=== PATIENT | male | born 1990 | race Caucasian/White ===

== ENCOUNTER 2017-09-29 09:30 | Inpatient (IN) | payer SELFPAY ==
[~2017-09-29] VITALS: Ht 182.9 cm; Wt 92.5 kg
[2017-09-29] MEDS ORDERED: NALOXONE HCL 0.4 MG/ML AMP IV PUSH PRN (11:00)
[2017-09-29] MEDS ORDERED: SODIUM CHLORIDE 0.9% FLUSH 10 ML FLUSH IV FLUSH PRN (11:00)
[2017-09-29 12:55] VITALS: BP 121/77; PULSE 88; RESP 17; TEMP 98.5; O2SAT 99
[2017-09-29] MEDS ORDERED: DILTIAZEM INJ 125 MG in SODIUM CHLORIDE 0.9% INJ 100 ML IV PRN (13:45)
--- NOTE | 2017-09-29 14:59 | HHI.HP ---
[facility] No Primary Care Physician Admission Diagnosis Diagnoses: Travel History International Travel<30 Days: No Contact w/Intl Traveler <30 Da: No Traveled to Known Affected Are: No History of Present Illness woke up today short of breath palpitaitons woke up from it even went to gym to check his hr heart rate was not able to be registered on exercise machine then waited on /gf and came to er no similar symptoms family drove him did have diarrhea on wednesday- but now resolved - no black no red have been urinating quite a bit only in ER now, not at home usually go out in [place], go out to [place], had deer hunting and ate deer meat about 2 weeks ago, family thinks he looks pale too family at bedside had hx of stroglioids did have a tick bite the other day in the [place] and he flicked it off can run 10miles without any trouble no thyroid issues no recent prolonged travels denies iv drug abuse, scared of needles, denies cocaine tox screen though is positive for marijuana beyond raw preworkout : jym protein hydrowhey protein glutamin chewable mvi - occasionally - biweeky those workout pills taking it for over a month takes one redbull occasionally, not every day Review of Systems Except as stated in HPI: all other systems reviewed are Neg Past Family Social History Past Medical History none Past Surgical History bilateral inguinal hernia sx bilateral menisucs sx Allergies: Coded Allergies: No Known Allergies (Unverified , 09/29/17) Family History grandmother had aortic aneurysm after MVA at age 82 Social History never smoked drinks etoh only once in a while no drugs Physical Exam Vital Signs Vital Signs Date Time Temp Pulse Resp B/P (MAP) Pulse Ox O2 Delivery O2 Flow Rate FiO2 09/29/17 12:55 98.5 88 17 121/77 (92) 99 09/29/17 12:55 88 09/29/17 12:55 98.5 88 17 121/77 (92) 99 Physical Exam GENERAL: This is a well-nourished, well-developed patient, in no apparent distress. SKIN: No rashes, ecchymoses or lesions. Cool and dry. HEAD: Atraumatic. Normocephalic. No temporal or scalp tenderness. EYES: Pupils equal round and reactive. Extraocular motions intact. No scleral icterus. No injection or drainage. ENT: Nose without bleeding, purulent drainage or septal hematoma. Throat without erythema, tonsillar hypertrophy or exudate. Uvula midline. Airway patent. NECK: Trachea midline. No JVD or lymphadenopathy. Supple, nontender, no meningeal signs. CARDIOVASCULAR: Regular rate and rhythm without murmurs, gallops, or rubs. RESPIRATORY: Clear to auscultation. Breath sounds equal bilaterally. No wheezes , rales, or rhonchi. GASTROINTESTINAL: Abdomen soft, non-tender, nondistended. No hepato-splenomegaly , or palpable masses. No guarding. MUSCULOSKELETAL: Extremities without clubbing, cyanosis, or edema. No joint tenderness, effusion, or edema noted. No calf tenderness. Negative Homans sign bilaterally. NEUROLOGICAL: Awake and alert. Cranial nerves II through XII intact. Motor and sensory grossly within normal limits. Five out of 5 muscle strength in all muscle groups. Normal speech. Laboratory labs from [facility] today reviewed Caprini VTE Risk Assessment Caprini VTE Risk Assessment: Mod/High Risk (score >= 2) Caprini Risk Assessment Model Point Value = 1 Point Value = 2 Point Value = 3 Point Value = 5 Age 41-60 Minor surgery BMI > 25 kg/m2 Swollen legs Varicose veins or History of unexplained or recurrent spontaneous Oral contraceptives or hormone replacement Sepsis (< 1 month) Serious lung disease, including pneumonia (< 1 month) Abnormal pulmonary function Acute myocardial infarction Congestive heart failure (< 1 month) History of inflammatory bowel disease Medical patient at bed rest Age 61-74 Arthroscopic surgery Major open surgery (> 45 min) Laparoscopic surgery (> 45 min) Malignancy Confined to bed (> 72 hours) Immobilizing plaster cast Central venous access Age >= 75 History of VTE Family history of VTE Factor V Leiden Prothrombin [id number] Lupus anticoagulant Anticardiolipin antibodies Elevated serum homocysteine Heparin-induced thrombocytopenia Other congenital or acquired thrombophilia Stroke (< 1 month) Elective arthroplasty Hip, pelvis, or leg fracture Acute spinal cord injury (< 1 month) Prophylaxis Regimen Total Risk Factor Score Risk Level Prophylaxis Regimen 0-1 Low Early ambulation 2 Moderate Order ONE of the following: *Sequential Compression Device (SCD) *Heparin 5000 units SQ BID 3-4 Higher Order ONE of the following medications: *Heparin 5000 units SQ TID *Enoxaparin/Lovenox 40 mg SQ daily (WT < 150 kg, CrCl > 30 mL/min) *Enoxaparin/Lovenox 30 mg SQ daily (WT < 150 kg, CrCl > 10-29 mL/min) *Enoxaparin/Lovenox 30 mg SQ BID (WT < 150 kg, CrCl > 30 mL/min) AND/OR *Sequential Compression Device (SCD) 5 or more Highest Order ONE of the following medications: *Heparin 5000 units SQ TID (Preferred with Epidurals) *Enoxaparin/Lovenox 40 mg SQ daily (WT < 150 kg, CrCl > 30 mL/min) *Enoxaparin/Lovenox 30 mg SQ daily (WT < 150 kg, CrCl > 10-29 mL/min) *Enoxaparin/Lovenox 30 mg SQ BID (WT < 150 kg, CrCl > 30 mL/min) AND *Sequential Compression Device (SCD) Assessment and Plan Assessment and Plan Impression: new onset afib possibly secondary to exercise supplements induced possible underlying structural heart disease from exotic diseases- [place] a lot, hx of tick bite Plan: continue cardizem drip serial enzymes and ekgs cardiology consulted echo will follow- likely cardioversion this pm anticoagulation with aspirin ID consult for possible other exotic etiologies? dvt prophylaxis with lovenox Discussed Condition With patient, father, girlfriend, ER physician at [facility] Physician Certification 2 Midnight Certification Type: Admission for Inpatient Services Order for Inpatient Services The services are ordered in accordance with Medicare regulations or non- Medicare payer requirements, as applicable. In the case of services not specified as inpatient-only, they are appropriately provided as inpatient services in accordance with the 2-midnight benchmark. Estimated LOS (days): 2 days is the estimated time the patient will need to remain in the hospital, assuming treatment plan goals are met and no additional complications. Post-Hospital Plan: Home Pillo Riley MD Sep 29, 2017 14:59
[2017-09-29 15:00] VITALS: BP_SYST 118; BP_DIAS 64; BP_DIAS 70; PULSE 98; RESP 16; RESP 17; TEMP 98; O2SAT 96; O2SAT 99
[2017-09-29] MEDS ORDERED: DILTIAZEM 125 MG/NS 100 ML IV PRN ×2 (15:00)
--- NOTE | 2017-09-29 15:48 | ECHRPT ---
Indication: ATRIAL FIBRILLATION, PRE CARDIOVERTION CONCLUSIONS Normal left ventricular size. The left ventricular systolic function is low normal with an estimated ejection fraction in the rang e of 50- 55%. Mild mitral valve regurgitation. Trace aortic valve regurgitation. There is trace tricuspid valve regurgitation. . BP: 121 / 77 HR: Rhythm: Atrial fibrillation MEASUREMENTS (Male / Female) Normal Values Technical Quality:Fair 2D ECHO LV Diastolic Diameter PLAX 4.8 cm 4.2 - 5.9 / 3.9 - 5.3 cm LV Systolic Diameter PLAX 3.6 cm IVS Diastolic Thickness 1.1 cm 0.6 - 1.0 / 0.6 - 0.9 cm LVPW Diastolic Thickness 1.1 cm 0.6 - 1.0 / 0.6 - 0.9 cm LV Relative Wall Thickness 0.5 RV Internal Dim ED PLAX 3.3 cm LVOT Diameter 2.3 cm Aortic Root Diameter 3.3 cm LA Systolic Diameter LX 3.4 cm 3.0 - 4.0 / 2.7 - 3.8 cm M-MODE AV Cusp Separation MM 2.3 cm DOPPLER AV Peak Velocity 99.9 cm/s AV Peak Gradient 4.0 mmHg AV Mean Gradient 2.0 mmHg AV Velocity Time Integral 13.0 cm LVOT Peak Velocity 106.7 cm/s LVOT Peak Gradient 4.6 mmHg LVOT Velocity Time Integral 15.5 cm AV Area Cont Eq vti 5.0 cm AV Area Cont Eq pk 4.4 cm Mitral E Point Velocity 77.0 cm/s Mitral A Point Velocity 76.0 cm/s Mitral E to A Ratio 1.0 LV E' Lateral Velocity 19.2 cm/s Mitral E to LV E' Lateral Ratio 4.0 LV E' Septal Velocity 13.5 cm/s Mitral E to LV E' Septal Ratio 5.7 TR Peak Velocity 166.0 cm/s TR Peak Gradient 11.0 mmHg PV Peak Velocity 46.6 cm/s PV Peak Gradient 0.9 mmHg FINDINGS LEFT VENTRICLE Normal left ventricular size. The left ventricular systolic function is low normal with an estimated ejection fraction in the rang e of 50- 55%. RIGHT VENTRICLE Normal right ventricular size and systolic function. LEFT ATRIUM The left atrial size is normal. RIGHT ATRIUM The right atrial size is normal. ATRIAL SEPTUM Normal atrial septal thickness without atrial level shunting by limited color doppler interrogation. AORTA The aortic root and proximal ascending aorta are normal in size on limited imaging. MITRAL VALVE Mild mitral valve regurgitation. AORTIC VALVE Trace aortic valve regurgitation. TRICUSPID VALVE There is trace tricuspid valve regurgitation. . PULMONARY VALVE No pulmonary valve regurgitation or stenosis. VESSELS The inferior vena cava is normal in size. PERICARDIUM No pericardial effusion. Katelyn Tyler MD, FACC (Electronically Signed) Final Date:29 September 2017 15:47
[2017-09-29 18:00] VITALS: BP 125/63; PULSE 97; RESP 16; TEMP 98.2; O2SAT 99
[2017-09-29] MEDS ORDERED: DILTIAZEM HCL 30 MG TAB PO SCH (18:00)
[2017-09-29 18:11] LABS: CREATINE KINASE 239 U/L (39-308)
[2017-09-29 18:20] VITALS: BP 125/63; PULSE 97; RESP 16; TEMP 98.2; O2SAT 99
[2017-09-29] MEDS ORDERED: METO25TA3 PO (18:24)
[2017-09-29] MEDS ORDERED: ASPI325T33 PO (18:26)
--- NOTE | 2017-09-29 18:43 | MB ---
cc: HUBER ANDERSON DATE OF : [birth year] DATE OF CONSULTATION: 09/29/2017 REASON FOR CONSULTATION: HISTORY OF PRESENT ILLNESS: The patient is a 27 year-old white male with no previous cardiac history, woke up last night with palpitations. He had mild shortness of breath, no significant chest pain. He is very active. He drinks alcohol occasionally. PAST MEDICAL HISTORY, PAST SURGICAL HISTORY: Inguinal hernia surgery. Bilateral menisci surgery. MEDICATIONS: None. ALLERGIES: None. SOCIAL HISTORY The patient does not smoke. He drinks alcohol infrequently, does not use drugs. FAMILY HISTORY Negative for heart disease. REVIEW OF SYSTEMS: Otherwise negative. PHYSICAL EXAMINATION: VITAL SIGNS: Blood pressure 121/77, pulse 88 and irregular. HEENT: Negative. 2+ carotid strokes, no bruits. LUNGS: Clear. HEART: Irregularly irregular with no murmur, gallop or rub. ABDOMEN: Soft, no bruits. EXTREMITIES: 2+ distal pulses. NEUROLOGIC: Nonfocal. EKG: Reviewed. Showed atrial fibrillation with increased ventricular response. No acute changes. LABORATORY DATA: Hemoglobin 16.1, potassium 4.3, creatinine 1.1, CK 317, CKMB index normal. Troponin less than 0.02. DIAGNOSIS: New onset atrial fibrillation with rapid ventricular response. DISPOSITION: Mr. Gomez will be monitored on telemetry. We will obtain echocardiogram to evaluate his left ventricular function. He will be scheduled for cardioversion this afternoon. We will start therapy with beta-kandace and aspirin. MD HAILEY Dawn/ZELDA /3:17 PM /6:27 PM RAHEEM
[2017-09-29] MEDS ORDERED: METOPROLOL TARTRATE 25 MG TAB PO SCH (21:00)
[2017-09-29] MEDS ORDERED: SODIUM CHLORIDE 0.9% FLUSH 10 ML FLUSH IV FLUSH SCH (21:00)
--- NOTE | 2017-09-30 07:58 | MR ---
cc: HUBER ANDERSON DATE 09/29/2017 INDICATION Atrial fibrillation with rapid ventricle response. PROCEDURE PERFORMED DC cardioversion PROCEDURE NOTE After the patient was sedated by anesthesia, a 200 joules biphasic shock was delivered and converted the patient into sinus rhythm. DIAGNOSIS Successful cardioversion of atrial fibrillation. DISPOSITION Mr. Gomez will be started on beta kandace and aspirin. He will be discharged home from the cardiac standpoint. He will follow up with his primary physician after discharge. MD HAILEY Dawn/YISEL /4:13 PM /7:45 AM
[2017-09-30] MEDS ORDERED: ENOXAPARIN SODIUM 40 MG/0.4 ML SYRINGE SQ SCH (09:00)
[2017-09-30] MEDS ORDERED: ASPIRIN EC 325 MG TABEC PO SCH (09:00)
== END 2017-09-29 19:45 | disposition home or self-care (01) | DRG 310 ==
LOC: NEDDLT 09:30 → HCIS 12:35
PROVIDERS: ADMIT Family Medicine; ATTEND Family Medicine
DX: I48.91 Unspecified atrial fibrillation (principal)
CPT/HCPCS: 71010; 80048; 80307; 82550; 82552; 83735; 84484; 85025; 85379; 85610; 85730; 93005; 93306